=== PATIENT | male | born 1975 | race Caucasian/White ===

== ENCOUNTER 2019-05-26 21:20 | Emergency (ER) | payer BC, OTHER ==
[2019-05-27] MEDS ORDERED: predniSONE TAB* 20 MG PO ONE (00:47)
--- NOTE | 2019-05-27 00:48 | ED ---
Back Pain - HPI Summary HPI Summary: Pt is a 44 y/o M presenting to the ED with a chief complaint of back pain initially onset a couple of weeks ago in the R lower back. He states he works out frequently, so he initially thought he may have strained a muscle. Especially since he usually wakes up with the pain but it resolves throughout the day with IBU and movement. He reports slight cramping in the back of his R leg in the middle of exercising. However, today he cannot lie down, stand, move , or do anything but sit. He denies bowel issues, numbness, tingling, trouble walking, fever, or chills. - History of Current Complaint Chief Complaint: EDBackInjuryPain Stated Complaint: LOWER BACK PAIN PER PT Time Seen by Provider: 05/27/19 00:17 Hx Obtained From: Patient Onset/Duration: Gradual Onset, Lasting Days, Still Present Onset/Duration: Started Weeks Ago, Still Present Timing: Constant, Lasting Days Back Pain Location: Is Discrete @ - R lower back Severity Initially: Moderate Severity Currently: Moderate Pain Intensity: 3 Pain Scale Used: 0-10 Numeric Aggravating Symptom(s): Movement, Bending, Walking Alleviating Symptom(s): OTC Meds, Other - sitting Associated Signs And Symptoms: Positive: Pain with Weight Bearing. Negative: Fever, Numbness, Tingling - Allergies/Home Medications Allergies/Adverse Reactions: Allergies Allergy/AdvReac Type Severity Reaction Status Date / Time No Known Allergies Allergy Verified 05/27/19 00:32 PMH/Surg Hx/FS Hx/Imm Hx Previously Healthy: Yes Endocrine/Hematology History: Denies: Hx Diabetes Cardiovascular History: Denies: Hx Hypertension Infectious Disease History: No Infectious Disease History: Denies: Traveled Outside the [place] in Last 30 Days - Family History Known Family History: Negative: Cardiac Disease - Social History Alcohol Use: Weekly Hx Substance Use: No Substance Use Type: Reports: None Hx Tobacco Use: Yes Smoking Status (MU): Current Every Day Smoker Review of Systems Negative: Fever, Chills Negative: Other - bowel issues Positive: Myalgia - back pain. Negative: Other - trouble walking Negative: Paresthesia, Numbness All Other Systems Reviewed And Are Negative: Yes Physical Exam - Summary Physical Exam Summary: Appearance: Well-appearing, Well-nourished, lying in bed comfortably Skin: Warm, dry, no obvious rash Eyes: sclera anicteric, no conjunctival pallor ENT: mucous membranes moist, pharynx appears normal Neck: Supple, nontender Respiratory: Clear to auscultation, no signs of respiratory distress Cardiovascular: Normal S1, S2. No murmurs. Normal distal pulses in tibial and radial bilaterally. Abdomen: Soft, nontender, normal active bowel sounds present Musculoskeletal: Normal, Strength/ROM Intact. 2+ symmetric reflexes in ankle and knee, there are no sensory deficits and no focal deficits. Neurological: A&Ox3, awake and alert, mentation is normal, speech is fluent and appropriate Psychiatric: affect is normal, does not appear anxious or depressed Triage Information Reviewed: Yes Vital Signs On Initial Exam: Initial Vitals Temp Pulse Resp BP Pulse Ox 98.7 F 79 16 186/97 98 05/26/19 21:35 05/26/19 21:35 05/26/19 21:35 05/26/19 21:35 05/26/19 21:35 Vital Signs Reviewed: Yes Diagnostics - Vital Signs Vital Signs Temp Pulse Resp BP Pulse Ox 05/26/19 23:10 98.7 F 66 16 165/97 98 05/26/19 21:35 98.7 F 79 16 186/97 98 - Laboratory Lab Statement: Any lab studies that have been ordered have been reviewed, and results considered in the medical decision making process. Back Pain Course/Dx - Course Course Of Treatment: Pt is a 44 y/o M presenting to the ED with a chief complaint of back pain initially onset a couple of weeks ago in the R lower back. He reports slight cramping in the back of his R leg in the middle of exercising. Today, he cannot lie down, stand, move, or do anything but sit. He denies bowel issues, numbness, tingling, trouble walking, fever, or chills. On exam, the pt has no sensory or focal deficits. There are no other red flags to suggest spinal infection, tumor, pathologic fracture or neurologic impingement. The pt will be d/c'ed with dx of musculoskeletal back pain. He is stable and agreeable with this plan. - Diagnoses Provider Diagnoses: Musculoskeletal back pain Discharge ED - Sign-Out/Discharge Documenting (check all that apply): Patient Departure Patient Received Moderate/Deep Sedation with Procedure: No - Discharge Plan Condition: Good Disposition: HOME Prescriptions: predniSONE TAB* [Deltasone 20 MG TAB*] 40 mg PO DAILY 4 Days #8 tab Patient Education Materials: Back Pain (ED) Referrals: [facility] [Outside] Shantanu Coronado MD [Medical Doctor] - - Billing Disposition and Condition Condition: GOOD Disposition: Home - Attestation Statements Document Initiated by Scribe: Yes Documenting Scribe: Becka Meng Provider For Whom Juanjo is Documenting (Include Credential): Abundio Messer MD. Scribe Attestation: Becka Sawyer, kalyned for Abundio Messer MD. on 05/27/19 at 1847. Scribe Documentation Reviewed: Yes Provider Attestation: The documentation as recorded by the Becka tolliver accurately reflects the service I personally performed and the decisions made by , Abundio Messer MD. Status of Scribe Document: Viewed
[2019-05-27 01:11] VITALS: BP 154/95
== END 2019-05-27 01:10 | disposition home or self-care (01) ==
LOC: ED 21:20
DX: M54.9 Dorsalgia, unspecified (principal); F17.210 Nicotine dependence, cigarettes, uncomplicated
CPT/HCPCS: 99282; J7512